=== PATIENT | male | born 1955 | race Caucasian/White ===

== ENCOUNTER 2016-10-19 16:06 | Observation (INO) | payer BC, OTHER ==
[~2016-10-19] VITALS: Ht 185.4 cm; Wt 116.1 kg
[~2016-10-19 16:06] MED LIST: ASP325TEC PO; ASPI-892; ATEN100T88 PO; DCS100C PO; HYDR-3062 PO; METFORMIN PO; MTF500T PO; MULT-608 PO; OMG1KC; OXYC-12 PO; OXYC-197 PO; POTASSIUM; ROSU20TA PO; SULF1TAB35 PO; [UNRECOGNIZED DRUG - REMARK]
[2016-10-19] MEDS ORDERED: POTA10TA10 (16:25)
[2016-10-19] MEDS ORDERED: FURO40TA4 (16:25)
--- NOTE | 2016-10-19 16:30 | Diagnostic Imaging Report ---
INDICATION: Left hand weakness. Noncontrast brain CT is performed. There are no extra-axial fluid collections. No intracranial hemorrhage. No intracranial mass or mass effect. No midline shift. The ventricles are normal in size and position. There are no focal parenchymal abnormalities in the brain. Calvarial windows are unremarkable. IMPRESSION: Negative noncontrast brain CT. Dictated by: Dictated on workstation # [id number]
[2016-10-19 16:47] LABS: BASOPHILS % (AUTO) 0 % (0-10); EOSINOPHILS # (AUTO) 0.2 10^3/uL (0.0-0.3); EOSINOPHILS % (AUTO) 3 % (0-10); LYMPHOCYTES # (AUTO) 1.9 X 10^3 (1.0-4.0); LYMPHOCYTES % (AUTO) 27 % (12-44); MEAN CORPUSCULAR HEMOGLOBIN 31 PG (25-34); MEAN CORPUSCULAR HGB CONC 35 G/DL (32-36); MEAN CORPUSCULAR VOLUME 90 FL (80-99); MEAN PLATELET VOLUME 9.2 FL (7.4-10.4); MONOCYTES # (AUTO) 0.5 X 10^3 (0.0-1.0); MONOCYTES % (AUTO) 7 % (0-12); NEUTROPHILS # (AUTO) 4.5 X 10^3 (1.8-7.8); NEUTROPHILS % (AUTO) 63 % (42-75); PLATELET COUNT 154 10^3/uL (130-400); RED BLOOD COUNT 5.65 10^6/uL (4.35-5.85); RED CELL DISTRIBUTION WIDTH 13.9 % (10.0-14.5); WHITE BLOOD COUNT 7.2 10^3/uL (4.3-11.0)
--- NOTE | 2016-10-19 16:50 | ED Neurological Problem ---
General Chief Complaint: Neuro-Stroke Like Symptoms Stated Complaint: L HAND NUMBNESS Nursing Triage Note: ARRIVED VIA POV FROM DR HILL OFFICE. STATES AT 1445 HE LOST COORDINATION WITH HIS LEFT ARM/HAND THAT HAS SINCE RESOLVED. Nursing Sepsis Screen: No Definite Risk Source: patient Exam Limitations: no limitations History of Present Illness Time seen by provider: 16:12 Initial Comments Here with report of left arm weakness and loss of coordination that started about 1445 today. He noticed it while working on a car with his son. He was unable to pick pulling machine tender a flashlight or move his hand successfully. He then drove himself to his doctor's office who then referred him here for evaluation. Patient was doing a little better at that time and drove to the ER. On arrival , patient is without any abnormality and states everything is pretty much resolved. Denies weakness or numbness. Denies coordination issues or slurred speech. Timing/Duration: 1-3 hours Severity: moderate Associated Symptoms: No confusion, No fever/chills, No loss of consciousness, No muscle spasms, No nausea/vomiting, No paresthesia, weakness Allergies and Home Medications Allergies Coded Allergies: Penicillins (Unverified Allergy, Mild, RASH, 08/17/08) Home Medications Aspirin 325 Mg Tabec, 325 MG PO DAILY, (Reported) Atenolol 100 Mg Tablet, 25 MG PO DAILY, Ref 0 (Reported) Furosemide 40 Mg Tablet, #30 (Reported) Metformin Hcl 500 Mg Tablet, 1,000 MG PO BID, (Reported) DO NOT RESTART TILL 10/04/12 Potassium Chloride 10 Meq Tablet.er, #30 (Reported) [?Diuretic] , DAILY, (Reported) [Potassium] , ?MEQ DAILY, (Reported) Constitutional: see HPI, No chills, No fever Eyes: No Symptoms Reported Ears, Nose, Mouth, Throat: no symptoms reported Respiratory: no symptoms reported Cardiovascular: no symptoms reported, No chest pain, No edema Gastrointestinal: no symptoms reported, No abdominal pain, No nausea, No vomiting Genitourinary: no symptoms reported, No incontinence, No pain Musculoskeletal: see HPI Skin: no symptoms reported Psychiatric/Neurological: See HPI, Denies Cognitive Dysfunction, Denies Tonic Clonic Seizures, Weakness Endocrine: No Symptoms Reported All Other Systems Reviewed Negative Unless Noted: Yes Past Wdcyigb-Eqzyvs-Cqzoht Hx Patient Social History Alcohol Use: Rarely Uses Recreational Drug Use: No Smoking Status: Current Everyday Smoker Recent Foreign Travel: No Contact w/Someone Who Travel: No Recent Infectious Disease Expo: No Immunizations Up To Date Tetanus Booster (TDap): Unknown PED Vaccines UTD: No Surgeries HX Surgeries: Yes (BI PASS, ANKLE PINNED) Surgeries: CABG, Orthopedic, Tonsillectomy Respiratory Hx Respiratory Disorders: Yes Respiratory Disorders: Sleep Apnea Cardiovascular Hx Cardiac Disorders: Yes (STENTS) Cardiac Disorders: Heart Attack, Hypertension Neurological Hx Neurological Disorders: No Reproductive System Hx Reproductive Disorders: No Genitourinary Hx Genitourinary Disorders: Yes Genitourinary Disorders: Kidney Stones Gastrointestinal Hx Gastrointestinal Disorders: No Musculoskeletal Hx Musculoskeletal Disorders: Yes Musculoskeletal Disorders: Fractures Endocrine Hx Endocrine Disorders: Yes Endocrine Disorders: Diabetes, Non-Insulin dep HEENT HX ENT Disorders: No Cancer Hx Cancer: No Psychosocial Hx Psychiatric Problems: No Integumentary HX Skin/Integumentary Disorder: No Reviewed Nursing Assessment Reviewed/Agree w Nursing PMH: Yes Family Medical History Significant Family History: No Pertinent Family Hx Physical Exam Vital Signs Vital Sign - Last 12Hours 10/19/16 16:12 Temp 98.0 Pulse 67 Resp 18 B/P (MAP) 185/96 Pulse Ox 98 Capillary Refill : Less Than 3 Seconds General Appearance: WD/WN, no apparent distress HEENT: PERRL/EOMI, pharynx normal Neck: non-tender Respiratory: chest non-tender, lungs clear Cardiovascular: regular rate, rhythm, no murmur Gastrointestinal: non tender, soft Back: normal inspection, no CVA tenderness, no vertebral tenderness Extremities: non-tender, normal inspection Neurologic/Psychiatric: alert, oriented x 3 Crainal Nerves: normal hearing, normal speech, PERRL Coordination/Gait: normal finger to nose, normal gait Motor/Sensory: no motor deficit, no sensory deficit, no pronator drift Skin: normal color, warm/dry Stroke Onset of Symptoms Date of Onset of Symptoms: Oct 19, 2016 NIH Stroke Scale Assessment Level of Consciousness: 0=Alert Level of Consciousness-Questio: 0=Answers both month/age LOC Commands: 0=Performs both tasks Gaze: 0=Normal Visual [place]: 0=No visual loss Facial Movement (Facial Paresi: 0=Normal symmetrical mnt Motor Function-Arms Right: 0=No drift Motor Function-Arms Left: 0=No drift Motor Function-Legs Right: 0=No drift Motor Function-Legs Left: 0=No drift Limb Ataxia: 0=Absent Sensory: 0=Normal:no loss Best Language: 0=No aphasia Dysarthria: 0=Normal Extinction & Inattention: 0=No abnormality Stroke Thrombolytic Exclusion Age 18 or Over: Yes Intracranial Neoplasm/Aneurysm: No Recent CPR: No Diabetic Hemorrhagic Retinopat: No Recent Obstetric Delivery: No Significant Hepatic Dysfunctio: No Improving Symptoms: No Laceration Repair : Suture Size: 4-0 Progress/Results/Core Measures Results/Orders Lab Results Laboratory Tests Test 10/19/16 16:17 10/19/16 16:38 10/19/16 17:17 Range/Units Glucometer 126 H 70-110 MG/DL White Blood Count 7.2 4.3-11.0 10^3/uL Red Blood Count 5.65 4.35-5.85 10^6/uL Hemoglobin 17.7 13.3-17.7 G/DL Hematocrit 51 40-54 % Mean Corpuscular Volume 90 80-99 FL Mean Corpuscular Hemoglobin 31 25-34 PG Mean Corpuscular Hemoglobin Concent 35 32-36 G/DL Red Cell Distribution Width 13.9 10.0-14.5 % Platelet Count 154 130-400 10^3/uL Mean Platelet Volume 9.2 7.4-10.4 FL Neutrophils (%) (Auto) 63 42-75 % Lymphocytes (%) (Auto) 27 12-44 % Monocytes (%) (Auto) 7 0-12 % Eosinophils (%) (Auto) 3 0-10 % Basophils (%) (Auto) 0 0-10 % Neutrophils # (Auto) 4.5 1.8-7.8 X 10^3 Lymphocytes # (Auto) 1.9 1.0-4.0 X 10^3 Monocytes # (Auto) 0.5 0.0-1.0 X 10^3 Eosinophils # (Auto) 0.2 0.0-0.3 10^3/uL Basophils # (Auto) 0.0 0.0-0.1 10^3/uL Prothrombin Time 13.4 12.2-14.7 SEC INR Comment 1.1 0.8-1.4 Activated Partial Thromboplast Time 31 24-35 SEC D-Dimer 0.27 0.00-0.49 UG/ML Sodium Level 140 135-145 MMOL/L Potassium Level 3.7 3.6-5.0 MMOL/L Chloride Level 105 98-107 MMOL/L Carbon Dioxide Level 24 21-32 MMOL/L Anion Gap 11 5-14 MMOL/L Blood Urea Nitrogen 17 7-18 MG/DL Creatinine 0.86 0.60-1.30 MG/DL Estimat Glomerular Filtration Rate > 60 BUN/Creatinine Ratio 20 0-20 Glucose Level 117 H 70-105 MG/DL Calcium Level 9.5 8.5-10.1 MG/DL Total Bilirubin 0.9 0.1-1.0 MG/DL Aspartate Amino Transf (AST/SGOT) 14 5-34 U/L Alanine Aminotransferase (ALT/SGPT) 17 0-55 U/L Alkaline Phosphatase 109 40-136 U/L Troponin I < 0.30 <0.30 NG/ML Total Protein 7.6 6.4-8.2 GM/DL Albumin 4.6 H 3.2-4.5 GM/DL Urine Color YELLOW Urine Clarity SLIGHTLY CLOUDY Urine pH 5 5-9 Urine Specific [place] 1.020 1.016-1.022 Urine Protein NEGATIVE NEGATIVE Urine Glucose (UA) 4+ H NEGATIVE Urine Ketones NEGATIVE NEGATIVE Urine Nitrite NEGATIVE NEGATIVE Urine Bilirubin NEGATIVE NEGATIVE Urine Urobilinogen NORMAL NORMAL MG/DL Urine Leukocyte Esterase 1+ H NEGATIVE Urine RBC (Auto) 2+ H NEGATIVE Urine RBC NONE /HPF Urine WBC RARE /HPF Urine Squamous Epithelial Cells 2-5 /HPF Urine Crystals NONE /LPF Urine Bacteria NEGATIVE /HPF Urine Casts NONE /LPF Urine Mucus NEGATIVE /LPF Urine Culture Indicated NO My Orders Orders - GAIL CONTI MD Cbc With Automated Diff (10/19/16 16:17) Protime With Inr (10/19/16 16:17) Partial Thromboplastin Time (10/19/16 16:17) Comprehensive Metabolic Panel (10/19/16 16:17) Fibrin Degradation Products (10/19/16 16:17) Troponin I (10/19/16 16:17) Ua Culture If Indicated (10/19/16 16:17) Chest 1 View, Ap/Pa Only (10/19/16 16:17) Ekg Tracing (10/19/16 16:17) Nothing By Mouth (10/19/16 Dinner) Accucheck Stat ONCE (10/19/16 16:17) Saline Lock/Iv-Start (10/19/16 16:17) Vital Signs-Stroke Q1H (10/19/16 16:17) Ct Head Wo-R/O Stroke (10/19/16 16:17) O2 (10/19/16 16:17) Intake & Output 06,14,22 (10/19/16 16:17) Monitor-Rhythm Ecg Trace Only (10/19/16 16:17) Dysphagia Screening Tool (10/19/16 16:17) Vital Signs/I&O Vital Sign - Last 12Hours 10/19/16 16:12 Temp 98.0 Pulse 67 Resp 18 B/P (MAP) 185/96 Pulse Ox 98 Blood Pressure Mean: 125 Point of Care Testing Finger Stick Blood Glucose: 126 Progress Note : Progress Note Seen and evaluated. Stroke team activation initiated on patient arrival. Rapid CT completed. IV, labs, EKG and chest x-ray ordered. Stroke scale is 0. No acute findings currently on physical exam. Monitor patient. 1724: Discussed case with Dr. Whitehead. He accepts patient for admission, observation status. Patient remains without signs and symptoms and overall feels much better. Admit, observation status area patient agrees with plan. MRI and carotid ultrasound in the morning. ECG Initial ECG Impression Date: Oct 19, 2016 Initial ECG Impression Time: 16:27 Initial ECG Rate: 64 Initial ECG Rhythm: Normal Sinus Comment Sinus rhythm with normal axis. No evidence of ST elevation [place]. Unchanged from previous. Interpreted by me. Diagnostic Imaging Diagonstic Imaging: CT Plain Films/CT/US/NM/MRI: head Comments VIA [facility]. [place], [place] NAME: KARON BERMUDEZ [facility] REC#: [id number] PT STATUS: REG ER : 1955 PHYSICIAN: GAIL CONTI MD ADMIT DATE: 10/19/16/ER Draft Date of Exam:10/19/16 CT HEAD WO-R/O STROKE INDICATION: Left hand weakness. Noncontrast brain CT is performed. There are no extra-axial fluid collections. No intracranial hemorrhage. No intracranial mass or mass effect. No midline shift. The ventricles are normal in size and position. There are no focal parenchymal abnormalities in the brain. Calvarial windows are unremarkable. IMPRESSION: Negative noncontrast brain CT. Dictated on workstation # [id number] Dict: 10/19/16 1626 Trans: 10/19/16 1630 [id number] Interpreted by: CLIVE GREGG MD Electronically signed by: Reviewed: Reviewed by Me Diagonstic Imaging: Xray Plain Films/CT/US/NM/MRI: chest Comments VIA [facility]. [place], [place] NAME: KARON BERMUDEZ [facility] REC#: [id number] PT STATUS: REG ER : 1955 PHYSICIAN: GAIL CONTI MD ADMIT DATE: 10/19/16/ER Draft Date of Exam:10/19/16 CHEST 1 VIEW, AP/PA ONLY EXAMINATION: Portable upright radiograph of the chest. INDICATION: Left-sided weakness. FINDINGS: The lungs are clear. The heart size is borderline enlarged. No effusion or pneumothorax. The mediastinum and efren appear unremarkable. Sternotomy wires are seen. IMPRESSION: No acute process. Dictated on workstation # [id number] Dict: 10/19/16 1647 Trans: 10/19/16 1649 [id number] Interpreted by: BRAVO HERNÁNDEZ MD Electronically signed by: Reviewed: Reviewed by Me Departure Communication Time/Spoke to Admitting Phy: 17:24 Impression Impression: Primary Impression: Transient cerebral ischemia Qualified Codes: G45.9 - Transient cerebral ischemic attack, unspecified Disposition: ADMITTED INPATIENT Condition: Stable Decision to Admit Reason: Admit from ER (General) Decision to Admit/Date: Oct 19, 2016 Time/Decision to Admit Time: 17:24 Departure-Patient Inst. Referrals: MAICOL WHITEHEAD DO (PCP/Family) Primary Care Physician GAIL CONTI MD Oct 19, 2016 16:50
[2016-10-19 17:00] LABS: INR 1.1 (0.8-1.4); PROTHROMBIN TIME PATIENT 13.4 SEC (12.2-14.7)
[2016-10-19 17:14] LABS: ALANINE AMINOTRANSFERASE 17 U/L (0-55); ALBUMIN 4.6 GM/DL (3.2-4.5); ANION GAP 11 MMOL/L (5-14); ASPARTATE AMINO TRANSFERASE 14 U/L (5-34); BILIRUBIN,TOTAL 0.9 MG/DL (0.1-1.0); BLOOD UREA NITROGEN 17 MG/DL (7-18); BUN/CREATININE RATIO 20 (0-20); CALCIUM 9.5 MG/DL (8.5-10.1); CARBON DIOXIDE 24 MMOL/L (21-32); CHLORIDE 105 MMOL/L (98-107); CREATININE SERUM 0.86 MG/DL (0.60-1.30); GFR ESTIMATED > 60; GLUCOSE 117 MG/DL (70-105); HEMOLYSIS 22 (-100-29); ICTERUS 0.9 (-100-1.9); LIPEMIA 9 (-100-49); POTASSIUM 3.7 MMOL/L (3.6-5.0); SODIUM 140 MMOL/L (135-145); TOTAL PROTEIN 7.6 GM/DL (6.4-8.2)
[2016-10-19 17:19] LABS: TROPONIN I < 0.30 NG/ML (<0.30)
[2016-10-19 17:27] LABS: BILIRUBIN,URINE NEGATIVE (NEGATIVE); KETONES,URINE NEGATIVE (NEGATIVE); LEUKOCYTE ESTERASE ,URINE 1+ (NEGATIVE); NITRITE,URINE NEGATIVE (NEGATIVE); PH,URINE 5 (5-9); PROTEIN,URINE NEGATIVE (NEGATIVE); UROBILINOGEN,URINE NORMAL (NORMAL)
[2016-10-19 17:35] LABS: WBC,URINE RARE /HPF
[2016-10-19 18:20] VITALS: BP 140/85
[2016-10-19] MEDS ORDERED: DAPA10TA PO (18:33)
[2016-10-19] MEDS ORDERED: ATEN25TA PO (18:35)
[2016-10-19] MEDS ORDERED: POTA10TA10 PO (18:35)
[2016-10-19] MEDS ORDERED: FURO40TA4 PO (18:35)
[2016-10-19] MEDS ORDERED: METF1000 PO (18:35)
[2016-10-19] MEDS ORDERED: HYDR-3812 PO (18:35)
[2016-10-19 19:00] VITALS: BP 130/76
[2016-10-19] MEDS ORDERED: CATHETER FLUSH 10 ML SYR IV PRN (19:00)
[2016-10-19] MEDS ORDERED: NS IV 1000 ML 1,000 ML IV SCH (19:00)
--- NOTE | 2016-10-19 19:55 | Diagnostic Imaging Report ---
PROCEDURE: US Carotid Duplex Bilateral. TECHNIQUE: Multiple real-time grayscale images were obtained over the carotid arteries in various projections bilaterally. Additional duplex Doppler and color Doppler images were also obtained. INDICATION: TIA COMPARISON: There are no prior studies available for comparison. FINDINGS: There is mild hard and soft plaque formation in both carotid systems. The flow velocities failed to show any sign of a hemodynamically significant stenosis of the common or internal carotid arteries. The flow velocities are as follows: Right mid CCA right: 71.4, left 73.3. Proximal ICA right 53.4, left at 55.3. Mid ICA right 91.9, left 83.2. Distal ICA right 95.1, left 81.4. IC/CC right 1.3, left 1.1. Both vertebral arteries were identified and there was antegrade flow bilaterally. IMPRESSION: There is mild atherosclerotic disease involving both carotid systems. There is no evidence for a hemodynamically significant stenosis of common or internal carotid arteries. Dictated by: Dictated on workstation # [id number]
[2016-10-19] MEDS: inSUlin (REGULAR) HUMAN 1 UNIT/0.01 ML (CHARGE PER UNIT) SC SCH (21:28)
[2016-10-19 23:15] VITALS: BP 112/71
[2016-10-20 04:00] VITALS: BP 108/70
[2016-10-20 04:14] LABS: BASOPHILS % (AUTO) 0 % (0-10); EOSINOPHILS # (AUTO) 0.3 10^3/uL (0.0-0.3); EOSINOPHILS % (AUTO) 4 % (0-10); LYMPHOCYTES # (AUTO) 2.3 X 10^3 (1.0-4.0); LYMPHOCYTES % (AUTO) 33 % (12-44); MEAN CORPUSCULAR HEMOGLOBIN 31 PG (25-34); MEAN CORPUSCULAR HGB CONC 34 G/DL (32-36); MEAN CORPUSCULAR VOLUME 91 FL (80-99); MEAN PLATELET VOLUME 9.2 FL (7.4-10.4); MONOCYTES # (AUTO) 0.6 X 10^3 (0.0-1.0); MONOCYTES % (AUTO) 9 % (0-12); NEUTROPHILS # (AUTO) 3.8 X 10^3 (1.8-7.8); NEUTROPHILS % (AUTO) 55 % (42-75); PLATELET COUNT 140 10^3/uL (130-400); RED BLOOD COUNT 5.17 10^6/uL (4.35-5.85); RED CELL DISTRIBUTION WIDTH 13.9 % (10.0-14.5); WHITE BLOOD COUNT 6.9 10^3/uL (4.3-11.0)
[2016-10-20 04:33] LABS: ALANINE AMINOTRANSFERASE 15 U/L (0-55); ALBUMIN 3.7 GM/DL (3.2-4.5); ANION GAP 13 MMOL/L (5-14); ASPARTATE AMINO TRANSFERASE 16 U/L (5-34); BILIRUBIN,TOTAL 0.8 MG/DL (0.1-1.0); BLOOD UREA NITROGEN 19 MG/DL (7-18); BUN/CREATININE RATIO 24 (0-20); CALCIUM 9.1 MG/DL (8.5-10.1); CARBON DIOXIDE 22 MMOL/L (21-32); CHLORIDE 104 MMOL/L (98-107); CREATININE SERUM 0.78 MG/DL (0.60-1.30); GFR ESTIMATED > 60; GLUCOSE 119 MG/DL (70-105); HEMOLYSIS 23 (-100-29); ICTERUS 0.8 (-100-1.9); LIPEMIA 17 (-100-49); POTASSIUM 3.5 MMOL/L (3.6-5.0); SODIUM 139 MMOL/L (135-145); TOTAL PROTEIN 6.5 GM/DL (6.4-8.2)
[2016-10-20] MEDS: inSUlin (REGULAR) HUMAN 1 UNIT/0.01 ML (CHARGE PER UNIT) SC SCH ×2 (04:41→13:20)
[2016-10-20 08:45] VITALS: BP 122/74
--- NOTE | 2016-10-20 08:48 | Diagnostic Imaging Report ---
PROCEDURE: MR imaging of the brain without contrast. TECHNIQUE: Multiplanar, multisequence MR imaging of the brain was performed without contrast. INDICATION: Left hand and arm weakness. Numbness. FINDINGS: There is no diffusion restriction to suggest an acute infarct or other diffusion abnormality. There is minimal periventricular and deep white matter T2 hyperintense lesions likely secondary to mild chronic microvascular ischemic changes. There is no hydrocephalus. No extra-axial fluid collection is seen. The central vascular flow-voids appear grossly unremarkable. The internal auditory canals and inner ear structures appear symmetric. There is fluid intensity seen in the mastoid air cells bilaterally. Correlate for possible associated mastoiditis. There is also suggestion of a mucous retention cyst in the left maxillary sinus and mucosal thickening in the sinus. The pituitary gland is normal in size. No hypothalamic or pineal region mass. IMPRESSION: 1. No acute infarct. 2. Sinus disease. Dictated by: Dictated on workstation # [id number]
--- NOTE | 2016-10-20 08:54 | History & Physicial ---
History of Present Illness History of Present Illness Reason for visit/HPI patient came to the office yesterday. Patient unable to move his left hand and arm. This started 45 minutes ago. Patient in office was able to move his left hand for weaker. Patient stated he was unable to pickup driver a half pound flashlight. Patient immediately sent out to the emergency room. Patient has history of open heart surgery and diabetes. Patient admitted Date of Admission Oct 19, 2016 at 17:40 Time Seen by Provider: 08:45 I consulted on this patient on 10/20/16 08:50 Attending Physician Austin Whitehead DO Admitting Physician Austin Whitehead DO Consult Allergies and Home Medications Allergies Coded Allergies: Penicillins (Unverified Allergy, Mild, RASH, 08/17/08) Home Medications Aspirin 325 Mg Tabec, 325 MG PO DAILY, (Reported) Atenolol 25 Mg Tablet, 25 MG PO DAILY, (Reported) Dapagliflozin Propanediol 10 Mg Tablet, 10 MG PO DAILY, (Reported) Furosemide 40 Mg Tablet, 40 MG PO DAILY, (Reported) Hydrocodone/Acetaminophen 1 Each Tablet, 1 EACH PO BID PRN for PAIN, (Reported) Metformin HCl 1,000 Mg Tablet, 1,000 MG PO BID, (Reported) Potassium Chloride 10 Meq Tablet.er, 10 MEQ PO DAILY, (Reported) Past Ywdnvwl-Howfwg-Hndywm Hx Patient Social History Marrital Status: Employed/Student: employed Alcohol Use: Rarely Uses Recreational Drug Use: No Smoking Status: Light Tobacco Smoker Type Used: Cigars Physical Abuse Screen: No Sexual Abuse: No Recent Foreign Travel: No Contact w/other who traveled: No Recent Hopitalizations: No Recent Infectious Disease Expo: No Immunizations Up To Date Tetanus Booster (TDap): Unknown Seasonal Allergies Seasonal Allergies: No Surgeries HX Surgeries: Yes (BI PASS, ANKLE PINNED) Surgeries: CABG, Orthopedic, Tonsillectomy Respiratory Hx Respiratory Disorders: Yes Cardiovascular Hx Cardiovascular Disorders: Yes (STENTS) Cardiac Disorders: Heart Attack, Hypertension Neurological Hx Neurological Disorders: No Reproductive System Hx Reproductive Disorders: No Genitourinary Hx Genitourinary Disorders: Yes Genitourinary Disorders: Kidney Stones Gastrointestinal Hx Gastrointestinal Disorders: No Musculoskeletal Hx Musculoskeletal Disorders: Yes Musculoskeletal Disorders: Fractures Endocrine Hx Endocrine Disorders: Yes Endocrine Disorders: Diabetes, Non-Insulin dep HEENT HX ENT Disorders: No Cancer Hx Cancer: No Psychosocial Hx Psychiatric Problems: No Integumentary HX Skin/Integumentary Disorder: No Blood Transfusions Adverse Reaction to a Blood Tr: No Reviewed Nursing Assessment Reviewed/Agree w Nursing PMH: Yes Family Medical History Significant Family History: No Pertinent Family Hx Constitutional: no symptoms reported, other (weakness left hand and arm) EENTM: no symptoms reported Respiratory: no symptoms reported Cardiovascular: no symptoms reported Gastrointestinal: no symptoms reported Genitourinary: no symptoms reported Physical Exam Vital Signs Vital Sign - Last 12Hours 10/19/16 10/19/16 10/19/16 16:12 18:20 21:04 Temp 98.0 Pulse 67 Resp 18 B/P (MAP) 185/96 Pulse Ox 98 O2 Delivery Room Air O2 Flow Rate 4.00 Capillary Refill : Less Than 3 Seconds General Appearance: No Apparent Distress, WD/WN Eyes: Bilateral Eye Normal Inspection HEENT: Normal ENT Inspection Neck: Full Range of Motion, Normal Inspection Respiratory: Chest Non Tender, Normal Breath Sounds, No Accessory Muscle Use, No Respiratory Distress Cardiovascular: Regular Rate, Rhythm, No Murmur Gastrointestinal: Non Tender, Soft Assessment/Plan Assessment and Plan TIA versus CVA. Diabetes. Coronary artery disease. Hypertension. Problems: Clinical Quality Measures DVT/VTE Risk/Contraindication: Risk Factor Score Per Nursin RFS Level Per Nursing on Admit: 4+=Very High Stroke: Date of last known well: Oct 19, 2016 A[place]IN WHITEHEAD DO Oct 20, 2016 08:54
[2016-10-20] MEDS ORDERED: ENOXAPARIN 40 MG/0.4 ML (LOVENOX) SYR SC SCH (09:00)
[2016-10-20] MEDS ORDERED: FUROSEMIDE 40 MG (LASIX) TAB PO SCH (09:00)
[2016-10-20] MEDS ORDERED: NON-FORMULARY MEDICATION 1 EA EA (Dapagliflozin Propanediol (Farxiga) 10 MG) PO SCH (09:00)
[2016-10-20] MEDS ORDERED: ASPIRIN E.C. 325 MG (ECOTRIN) TABLET PO SCH ×2 (09:00)
[2016-10-20] MEDS ORDERED: KCL 10 MEQ TAB (MICRO K) PO SCH (09:00)
[2016-10-20] MEDS ORDERED: ATENOLOL 25 MG (TENORMIN) TAB PO SCH (09:00)
--- NOTE | 2016-10-20 10:10 | Consultation-Cardiology ---
HPI-Cardiology Cardiology Consultation: Date of Consultation 10/20/16 Date of Admission 10-19-16 Attending Physician Maicol Whitehead DO Admitting Physician Maicol Whitehead DO Consulting Physician ABDIEL LORD MD [facility] ADRYAN DUP HPI: Chief Complaint: Suspected TIA Mr. Smith is a 61 year old male admitted to ICU 3 from the ED. He reports he was at work yesterday and had a sudden onset of left arm weakness. He states starting at approx the left forearm he began to have numbness which radiated down to his fingers. 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 He states it lasted for approx 15 mintues. He reports no previous episodes. He reports symptoms have resolved. He denies any palpitations, syncope or near syncope. No LE edema. No c/o dyspnea. The episode consisted of L arm numbness, paresthesia, and some weakness. It resolved in about an hour. He thinks he may have been standing or sitting with his L elbow pressing against a hard surface Review of Systems-Cardiology Review of Systems Time Seen by Provider: 10:10 Constitutional: As described under HPI Eyes: No blurred vision, No drainage, No pain, No vision change Ears/Nose/Throat: No ear discharge, No ear pain, No nasal drainage, No ulcerations Respiratory: As described under HPI Cardiovascular: As described under HPI Gastrointestinal: No constipation, No diarrhea, No nausea, No vomiting, No stool coloration changes Genitourinary: No dysuria, No discharge, No frequency, No hematuria, No urgency Skin: No rash, No skin related problems, No ulcerations Psychiatric/Neurological: As described under HPI, No anxiety, No depression, No focal weakness, No seizure, No syncope Hematologic: No bleeding abnormalities All Other Systems Reviewed Negative Unless Noted: Yes [id number]-[id number]-Ndfyux Hx Patient Social History Marrital Status: Employed/Student: employed Alcohol Use: Rarely Uses Recreational Drug Use: No Smoking Status: Light Tobacco Smoker Type Used: Cigars Recent Foreign Travel: No Recent Infectious Disease Expo: No Physical Abuse Screen: No Sexual Abuse: No Immunizations Up To Date Tetanus Booster (TDap): Unknown Past Medical History PMH As described under Assessment. Family Medical History Family Medical History: Father had DM, HTN, CVA and CAD. His mother had HTN. Allergies and Home Medications Allergies Coded Allergies: Penicillins (Unverified Allergy, Mild, RASH, 08/17/08) Home Medications Aspirin 325 Mg Tabec, 325 MG PO DAILY, (Reported) Atenolol 25 Mg Tablet, 25 MG PO DAILY, (Reported) Dapagliflozin Propanediol 10 Mg Tablet, 10 MG PO DAILY, (Reported) Furosemide 40 Mg Tablet, 40 MG PO DAILY, (Reported) Hydrocodone/Acetaminophen 1 Each Tablet, 1 TAB PO BID PRN for PAIN, (Reported) Metformin HCl 500 Mg Tablet, 1,000 MG PO BID, (Reported) TAKES 2 (500 MG) TABLETS [place]-3/Dha/Epa/Fish Oil 1 Each Capsule, 3,000 MG PO BID, (Reported) TAKES 3 (1,000 MG) CAPSULES Potassium Chloride 10 Meq Tablet.er, 10 MEQ PO DAILY, (Reported) Rosuvastatin Calcium 20 Mg Tablet, 20 MG PO DAILY, (Reported) Physical Exam-Cardiology Physical Exam Vital Signs/I&O Vital Sign - Last 12Hours 10/20/16 10/20/16 10/20/16 10/20/16 07:00 08:45 08:45 09:55 Temp 97.7 Pulse 51 58 Resp 14 B/P (MAP) 122/74 Pulse Ox 98 99 98 O2 Delivery Room Air Room Air Room Air 10/20/16 10/20/16 10/20/16 10/20/16 12:00 12:00 13:00 15:15 Temp 98.0 Pulse 60 59 Resp 16 B/P (MAP) 118/75 Pulse Ox 99 98 O2 Delivery Room Air Room Air Nasal Cannula O2 Flow Rate 4.00 10/20/16 10/20/16 16:10 16:10 B/P (MAP) Pulse Ox 99 O2 Delivery Room Air Intake and Output 10/20/16 00:00 Intake Total 250 ml Output Total 200 ml Balance 50 ml Capillary Refill : Less Than 3 Seconds Constitutional: appears stated age, No apparent distress, well-developed, well- nourished HEENT: PERRL, No discharge, hearing is well preserved, oral hygience is good, No ulceration, No xanthelasmas are seen Neck: No carotid bruit, carotid pulses are 2 + bilaterally Respiratory: No accessory muscle use, No respiratory distress, chest expansion is symmetric, chest is bilaterally symmetric, lungs clear to auscultation Cardiovascular: regular rate-rhythm, No JVD, S1 and S2 Gastrointestinal: No tender, soft, audible bowel sounds, No spleenomegaly Rectal: deferred Extremities: No clubbing, No cyanosis, No significant edema Neurologic/Psychiatric: alert, oriented x 3, power is 5/5 both on sides Skin: No rash, No ulcerations Data Review Labs Laboratory Tests 10/19/16 21:25: Glucometer 115H 10/20/16 03:40: White Blood Count 6.9, Red Blood Count 5.17, Hemoglobin 16.0, Hematocrit 47, Mean Corpuscular Volume 91, Mean Corpuscular Hemoglobin 31, Mean Corpuscular Hemoglobin Concent 34, Red Cell Distribution Width 13.9, Platelet Count 140, Mean Platelet Volume 9.2, Neutrophils (%) (Auto) 55, Lymphocytes (%) (Auto) 33, Monocytes (%) (Auto) 9, Eosinophils (%) (Auto) 4, Basophils (%) (Auto) 0, Neutrophils # (Auto) 3.8, Lymphocytes # (Auto) 2.3, Monocytes # (Auto) 0.6, Eosinophils # (Auto) 0.3, Basophils # (Auto) 0.0, Sodium Level 139, Potassium Level 3.5L, Chloride Level 104, Carbon Dioxide Level 22, Anion Gap 13, Blood Urea Nitrogen 19H, Creatinine 0.78, Estimat Glomerular Filtration Rate > 60, BUN /Creatinine Ratio 24H, Glucose Level 119H, Calcium Level 9.1, Total Bilirubin 0.8, Aspartate Amino Transf (AST/SGOT) 16, Alanine Aminotransferase (ALT/SGPT) 15, Alkaline Phosphatase 95, Total Protein 6.5, Albumin 3.7, Triglycerides Level 291H, Cholesterol Level 167, LDL Cholesterol Direct 106, VLDL Cholesterol 58H, HDL Cholesterol 20L 10/20/16 11:29: Glucometer 185H Radiology NAME: KARON SMITH [facility] REC#: [id number] PT STATUS: REG ER : 1955 PHYSICIAN: GAIL CONTI MD ADMIT DATE: 10/19/16/ER Signed Date of Exam: 10/19/16 CT HEAD WO-R/O STROKE INDICATION: Left hand weakness. Noncontrast brain CT is performed. There are no extra-axial fluid collections. No intracranial hemorrhage. No intracranial mass or mass effect. No midline shift. The ventricles are normal in size and position. There are no focal parenchymal abnormalities in the brain. Calvarial windows are unremarkable. IMPRESSION: Negative noncontrast brain CT. Dictated by: Dictated on workstation # [id number] Dict: 10/19/16 1626 Trans: 10/19/161657 Interpreted by: CLIVE GREGG MD Electronically signed by: CLIVE GREGG MD 10/19/161657 [id number] PT STATUS: REG ER : 1955 PHYSICIAN: GAIL CONTI MD ADMIT DATE: 10/19/16/ER Signed Date of Exam: 10/19/16 CHEST 1 VIEW, AP/PA ONLY EXAMINATION: Portable upright radiograph of the chest. INDICATION: Left-sided weakness. FINDINGS: The lungs are clear. The heart size is borderline enlarged. No effusion or pneumothorax. The mediastinum and efren appear unremarkable. Sternotomy wires are seen. IMPRESSION: No acute process. Dictated by: Dictated on workstation # [id number] Dict: 10/19/16 1647 Trans: 10/19/161658 Interpreted by: BRAVO HERNÁNDEZ MD Electronically signed by: BRAVO HERNÁNDEZ MD 10/19/161658 NAME: KARON SMITH [facility] REC#: [id number] PT STATUS: ADM Joellen : 1955 PHYSICIAN: MAICOL WHITEHEAD DO ADMIT DATE: 10/19/16/ICU Signed Date of Exam: 10/19/16 US CAROTID RICH COMPLETE [id number] PROCEDURE: US Carotid Duplex Bilateral. TECHNIQUE: Multiple real-time grayscale images were obtained over the carotid arteries in various projections bilaterally. Additional duplex Doppler and color Doppler images were also obtained. INDICATION: TIA COMPARISON: There are no prior studies available for comparison. FINDINGS: There is mild hard and soft plaque formation in both carotid systems. The flow velocities failed to show any sign of a hemodynamically significant stenosis of the common or internal carotid arteries. The flow velocities are as follows: Right mid CCA right: 71.4, left 73.3. Proximal ICA right 53.4, left at 55.3. Mid ICA right 91.9, left 83.2. Distal ICA right 95.1, left 81.4. IC/CC right 1.3, left 1.1. Both vertebral arteries were identified and there was antegrade flow bilaterally. IMPRESSION: There is mild atherosclerotic disease involving both carotid systems. There is no evidence for a hemodynamically significant stenosis of common or internal carotid arteries. Dictated by: Dictated on workstation # [id number] Dict: 10/19/161939 Trans: 10/19/162301 Interpreted by: ANDRES BECERRA MD Electronically signed by: ANDRES BECERRA MD 10/19/162301 NAME: KARON SMITH [facility] REC#: [id number] PT STATUS: ADM Joellen : 1955 PHYSICIAN: MAICOL WHITEHEAD DO ADMIT DATE: 10/19/16/ICU Draft Date of Exam:10/20/16 MRI BRAIN W/O CONTRAST PROCEDURE: MR imaging of the brain without contrast. TECHNIQUE: Multiplanar, multisequence MR imaging of the brain was performed without contrast. INDICATION: Left hand and arm weakness. Numbness. FINDINGS: There is no diffusion restriction to suggest an acute infarct or other diffusion abnormality. There is minimal periventricular and deep white matter T2 hyperintense lesions likely secondary to mild chronic microvascular ischemic changes. There is no hydrocephalus. No extra-axial fluid collection is seen. The central vascular flow-voids appear grossly unremarkable. The internal auditory canals and inner ear structures appear symmetric. There is fluid intensity seen in the mastoid air cells bilaterally. Correlate for possible associated mastoiditis. There is also suggestion of a mucous retention cyst in the left maxillary sinus and mucosal thickening in the sinus. The pituitary gland is normal in size. No hypothalamic or pineal region mass. IMPRESSION: 1. Sinus disease. Dictated on workstation # [id number] Dict: 10/20/16 0835 Trans: 10/20/16 0848 [facility] [id number] Interpreted by: BRAVO HERNÁNDEZ MD Electronically signed by: A/P-Cardiology Assessment/Admission Diagnosis Transient L arm weakness w/o evidence of CVA on MRI Mild carotid arterial disease on carotid u/s of 10/20/16 Suspected TIA consisting of left forearm to fingertip numbness and inability to hardware developer lasting approx 10-15 minutes with complete resolution No evidence of CVA per CT of the head or MRI Coronary artery disease with a history of coronary artery bypass surgery. He underwent left internal mammary graft to left anterior descending, saphenous vein graft to right coronary and a sequential vein graft to diagonal, ramus intermedius and obtuse marginal on 02/11/[address] Goyal at [facility]. Previously several years ago, he had drug-eluting coronary stenting of the coronary artery and was noted to have severe stent re-stenosis and other coronary artery disease on cardiac catheterization of January 2011 prior to his coronary artery bypass surgery. Dyslipidemia, currently being treated with Crestor by Dr Whitehead and also being followed by Dr Whitehead Joint and back discomfort. Maturity onset diabetes mellitus, being managed by Dr. Whitehead. Elevated body mass index of 33. Hypertension Sleep apnea being treated with BI-PAP. Chronic left leg swelling, likely related to venous insufficiency, associated with stasis dermatitis. History of urolithiasis. Erectile dysfunction. Minimal carotid arterial disease, hemodynamically insignificant per ultrasonography of 06/22/14. Carotid u/s of 10-20-16: mild atherosclerotic disease involving both carotid systems. There is no evidence for a hemodynamically significant stenosis of common or internal carotid arteries. Fall in August 2012 leading to pelvic fracture and L rotator cuff injury, clinically improved and stable, being followed by his orthopedic surgeon, Dr Man. Discussion and Recomendations Suspected TIA source undetermined. CT and MRI has shown no evidence of CVA. Carotid u/s shows only mild carotid dz. Telemetry thus far has shown no evidence of arrhythmia. Continue tele. If no evidence of arrhythmia seen need to consider out patient monitor or ILR. We have discussed this with him and he is not agreeable thus far. He has sleep apnea and reports he has been compliant with his CPAP tx at home. Continue current medications including ASA. Further recommendations will be based on his hospital course. We would like to thank Dr. Whitehead for this consult. This consult is being scribed by John Ovalle APRN on behalf of Dr. Lord after discussion regarding plan of care. Clinical Quality Measures DVT/VTE Risk/Contraindication: Risk Factor Score Per Nursin RFS Level Per Nursing on Admit: 4+=Very High Stroke: Date of last known well: Oct 19, 2016 Physician Assessment Physician Assessment Lungs: clear Cor: reg A&R: * As documented in our note above that I updated at the time of this writing ( italics) * There is no evidence of CVA on MRI, but symptoms are suggestive of TIA or entrapment neuropathy * I had a detailed discussion with him and with Dr Whitehead * Carotids do exhibit mild disease; accordingly, therapy with clopidogrel appears reasonable * PAF needs to be considered as a source of TIA. We discussed empiric OAC while awaiting further w/u for occult A Fib. He doesn't agree to OAC. Does not agree to ILR but is amenable to 3-week amb cardiac monitoring. States will come to our office in the morning to have that initiated ADRYAN OVALLE Oct 20, 2016 10:10 ABDIEL LORD MD FACP FAC CCDS Oct 20, 2016 18:44
[2016-10-20 10:26] LABS: CHOLESTEROL 167 MG/DL (< 200); DIRECT LDL 106 MG/DL (1-129); LIPEMIA 25 (-100-49); TRIGLYCERIDES 291 MG/DL (<150); VLDL CHOLESTEROL 58 MG/DL (5-40)
[2016-10-20] MEDS ORDERED: METF500T4 PO (10:27)
[2016-10-20] MEDS ORDERED: OMEG-160 PO (10:27)
[2016-10-20] MEDS ORDERED: HYDROcodone/APAP 5 MG/325 MG (LORTAB) TAB PO PRN (11:15)
[2016-10-20 12:00] VITALS: BP 118/75
[2016-10-20] MEDS ORDERED: ROSU20TA28 PO (16:29)
[2016-10-20] MEDS ORDERED: metFORMIN 500 MG (GLUCOPHAGE) TAB PO SCH (17:00)
[2016-10-20] MEDS ORDERED: CLOP75TA28 PO (18:48)
[2016-10-20] MEDS ORDERED: ASPI-999 PO (18:48)
[2016-10-21] MEDS ORDERED: CLOPIDOGREL 75 MG (PLAVIX) TABLET PO SCH (09:00)
--- NOTE | 2016-10-22 07:11 | Clinic Account Progress/Dx ---
Clinic Account Progress/Dx DIAGNOSIS: Time Seen by Provider: 07:00 Diagnosis transferred ischemic attack. Diabetes. Coronary artery disease. Hypertension. Hyperlipidemia. Sleep apnea MAICOL WHITEHEAD DO Oct 22, 2016 07:11
--- OUTSIDE RECORDS SUMMARY | 2016-10-22 12:44 | XMS REPORT | Continuity of Care Document ---
Author Author [facility] Organization [facility] Address Unknown Phone Unavailable Allergies Active Description Code Type Severity Reaction Onset Reported/Identified Relationship to Patient Clinical Status Yes Penicillins [id number] Drug Allergy Mild RASH 08/17/2008 Medications Problems Date Dx Coded Attending Type Code Diagnosis Diagnosed By 02/09/2011 Ot 250.00 02/09/2011 Ot 272.4 02/09/2011 Ot 278.00 02/09/2011 Ot 401.9 02/09/2011 Ot 410.71 02/09/2011 Ot 414.01 02/09/2011 Ot 780.57 02/09/2011 Ot 996.72 02/09/2011 Ot V15.81 02/09/2011 Ot V45.82 02/09/2011 Ot V85.39 05/29/2011 Ot V45.81 05/29/2011 Ot V57.89 10/03/2012 GHASSAN POND, KRAIG Ot 250.00 10/03/2012 GHASSAN POND, KRAIG Ot 272.1 10/03/2012 GHASSAN POND, KRAIG Ot 401.9 10/03/2012 GHSASAN POND, KRAIG Ot 414.00 10/03/2012 GHASSAN POND, KRAIG Ot 780.57 10/03/2012 GHASSAN POND, KRAIG Ot 808.0 10/03/2012 GHASSAN POND, KRAIG Ot E881.0 10/03/2012 GHASSAN POND, KRAIG Ot V15.82 10/03/2012 KRAIG FERRELL MD Ot V45.81 10/02/2014 Ot 272.4 10/02/2014 Ot 414.01 10/02/2014 Ot V58.69 10/02/2014 Ot 451.0 10/02/2014 Ot 414.00 10/02/2014 Ot V45.81 10/02/2014 Ot 401.9 10/02/2014 Ot 414.00 10/02/2014 Ot 780.79 10/02/2014 Ot V45.81 10/02/2014 Ot V58.69 10/02/2014 Ot 397.0 10/02/2014 Ot 414.8 10/02/2014 Ot 424.0 10/02/2014 Ot 272.4 10/02/2014 Ot 401.9 10/02/2014 Ot 414.00 10/02/2014 Ot V58.69 10/02/2014 GELLENDER DOMAICOL Ot 959.2 10/02/2014 GELLENDER DO, MAICOL Mares Ot E000.8 10/02/2014 GELLENDER DO, MAICOL Mares Ot E849.3 10/02/2014 GELLENDER DOMAICOL Ot E888.9 12/27/2014 Ot 451.0 12/27/2014 Ot 414.00 12/27/2014 Ot V45.81 12/27/2014 Ot 401.9 12/27/2014 Ot 414.00 12/27/2014 Ot 780.79 12/27/2014 Ot V45.81 12/27/2014 Ot V58.69 12/27/2014 Ot 397.0 12/27/2014 Ot 414.8 12/27/2014 Ot 424.0 12/27/2014 Ot 272.4 12/27/2014 Ot 401.9 12/27/2014 Ot 414.00 12/27/2014 Ot V58.69 12/27/2014 CASHLENDER , MAICOL Marse Ot 959.2 12/27/2014 GELLENDER DO, MAICOL Mares Ot E000.8 12/27/2014 GELLENDER DO, MAICOL Mares Ot E849.3 12/27/2014 GELLENDER , MAICOL Mares Ot E888.9 12/27/2014 HAZEL GARCIAS APRN Ot 826.1 FX PHALANX, FOOT-OPEN 12/27/2014 HAZEL GARCIAS SCHEDULING CLERK Ot 959.7 LOWER LEG INJURY NOS 12/27/2014 HAZEL GARCIAS SCHEDULING CLERK Ot E000.0 CIVILIAN ACTIVITY DONE FOR INCOME OR PAY 12/27/2014 HAZEL GARCIAS APRN Ot E917.9 STRUCK BY OBJ/PERSON NEC 12/27/2014 HAZEL GARCIAS SCHEDULING CLERK Ot V06.1 [id number], COMBINED [ 08/21/2015 VENTURA BULLOCKMAICOL Ot R07.2 PRECORDIAL PAIN 08/21/2015 GELLENDER DO, MAICOL Mares Ot Z98.89 OTHER SPECIFIED POSTPROCEDURAL STATES 03/17/2016 GELLENDER DO, MAICOL Mares Ot R07.2 PRECORDIAL PAIN 03/17/2016 CASHLENDER DO, MAICOL Mares Ot Z98.89 OTHER SPECIFIED POSTPROCEDURAL STATES 10/19/2016 GELLENDER DO, MAICOL Mares Ot R07.2 PRECORDIAL PAIN 10/19/2016 KENDYDER , MAICOL Mares Ot Z98.89 OTHER SPECIFIED POSTPROCEDURAL STATES Procedures Results Test Result Range Capillary blood glucose measurement by glucometer (mass/volume) - 10/19/16 16: 17 Capillary blood glucose measurement by glucometer (mass/volume) 126 mg/dL 70-110 Complete blood count (CBC) with automated white blood cell (WBC) differential - 10/19/16 16:38 Blood leukocytes automated count (number/volume) 7.2 10*3/ uL 4.3-11.0 Blood erythrocytes automated count (number/volume) 5.65 10*6 /uL 4.35-5.85 Venous blood hemoglobin measurement (mass/volume) 17.7 g/dL 13.3-17.7 Blood hematocrit (volume fraction) 51 % 40-54 Automated erythrocyte mean corpuscular volume 90 [foz_us] 80-99 Automated erythrocyte mean corpuscular hemoglobin (mass per erythrocyte) 31 pg 25-34 Automated erythrocyte mean corpuscular hemoglobin concentration measurement ( mass/volume) 35 g/dL 32-36 Automated erythrocyte distribution width ratio 13.9 % 10.0-14.5 Automated blood platelet count (count/volume) 154 10*3/uL 130-400 Automated blood platelet mean volume measurement 9.2 [foz_us ] 7.4-10.4 Automated blood neutrophils/100 leukocytes 63 % 42-75 Automated blood lymphocytes/100 leukocytes 27 % 12-44 Blood monocytes/100 leukocytes 7 % 0-12 Automated blood eosinophils/100 leukocytes 3 % 0-10 Automated blood basophils/100 leukocytes 0 % 0-10 Blood neutrophils automated count (number/volume) 4.5 10*3 1.8-7.8 Blood lymphocytes automated count (number/volume) 1.9 10*3 1.0-4.0 Blood monocytes automated count (number/volume) 0.5 10*3 0.0-1.0 Automated eosinophil count 0.2 10*3/uL 0.0-0.3 Automated blood basophil count (count/volume) 0.0 10*3/uL 0.0-0.1 PT panel in platelet poor plasma by coagulation assay - 10/19/16 16:38 Prothrombin time (PT) in platelet poor plasma by coagulation assay 13.4 s 12.2-14.7 INR in platelet poor plasma or blood by coagulation assay 1.1 0.8-1.4 Activated partial thromboplastin time (aPTT) in platelet poor plasma bycoagulation assay - 10/19/16 16:38 Activated partial thromboplastin time (aPTT) in platelet poor plasma bycoagulation assay 31 s 24-35 Fibrin D-dimer FEU measurement in platelet poor plasma (mass/volume) - 16:38 Fibrin D-dimer FEU measurement in platelet poor plasma (mass/volume) 0.27 ug/mL 0.00-0.49 Comprehensive metabolic panel - 10/19/16 16:38 Serum or plasma sodium measurement (moles/volume) 140 mmol/ L 135-145 Serum or plasma potassium measurement (moles/volume) 3.7 mmol/L 3.6-5.0 Serum or plasma chloride measurement (moles/volume) 105 mmol /L 98-107 Carbon dioxide 24 mmol/L 21-32 Serum or plasma anion gap determination (moles/volume) 11 mmol/L 5-14 Serum or plasma urea nitrogen measurement (mass/volume) 17 mg/dL 7-18 Serum or plasma creatinine measurement (mass/volume) 0.86 mg /dL 0.60-1.30 Serum or plasma urea nitrogen/creatinine mass ratio 20 0-20 Serum or plasma creatinine measurement with calculation of estimated glomerular filtration rate > NRG Serum or plasma glucose measurement (mass/volume) 117 mg/dL 70-105 Serum or plasma calcium measurement (mass/volume) 9.5 mg/dL 8.5-10.1 Serum or plasma total bilirubin measurement (mass/volume) 0.9 mg/dL 0.1-1.0 Serum or plasma alkaline phosphatase measurement (enzymatic activity/volume) 109 U/L 40-136 Serum or plasma aspartate aminotransferase measurement (enzymatic activity/ volume) 14 U/L 5-34 Serum or plasma alanine aminotransferase measurement (enzymatic activity/volume ) 17 U/L 0-55 Serum or plasma protein measurement (mass/volume) 7.6 g/dL 6.4-8.2 Serum or plasma albumin measurement (mass/volume) 4.6 g/dL 3.2-4.5 Serum or plasma troponin i.cardiac measurement (mass/volume) - 10/19/16 16:38 Serum or plasma troponin i.cardiac measurement (mass/volume) < ng/mL <0.30 Complete urinalysis with reflex to culture - 10/19/16 17:17 Urine color determination YELLOW NRG Urine clarity determination SLIGHTLY CLOUDY NRG Urine pH measurement by test strip 5 5- 9 Specific gravity of urine by test strip 1.020 1.016-1.022 Urine protein assay by test strip, semi-quantitative NEGATIVE NEGATIVE Urine glucose detection by automated test strip 4+ NEGATIVE Erythrocytes detection in urine sediment by light microscopy 2+ NEGATIVE Urine ketones detection by automated test strip NEGATIVE NEGATIVE Urine nitrite detection by test strip NEGATIVE NEGATIVE Urine total bilirubin detection by test strip NEGATIVE NEGATIVE Urine urobilinogen measurement by automated test strip (mass/volume) NORMAL NORMAL Urine leukocyte esterase detection by dipstick 1+ NEGATIVE Automated urine sediment erythrocyte count by microscopy (number/high power field) NONE NRG Automated urine sediment leukocyte count by microscopy (number/high power field ) RARE NRG Bacteria detection in urine sediment by light microscopy NEGATIVE NRG Squamous epithelial cells detection in urine sediment by light microscopy 2-5 NRG Crystals detection in urine sediment by light microscopy NONE NRG Casts detection in urine sediment by light microscopy NONE NRG Mucus detection in urine sediment by light microscopy NEGATIVE NRG Complete urinalysis with reflex to culture NO NRG Capillary blood glucose measurement by glucometer (mass/volume) - 10/19/16 21: 25 Capillary blood glucose measurement by glucometer (mass/volume) 115 mg/dL 70-110 Complete blood count (CBC) with automated white blood cell (WBC) differential - 10/20/16 03:40 Blood leukocytes automated count (number/volume) 6.9 10*3/ uL 4.3-11.0 Blood erythrocytes automated count (number/volume) 5.17 10*6 /uL 4.35-5.85 Venous blood hemoglobin measurement (mass/volume) 16.0 g/dL 13.3-17.7 Blood hematocrit (volume fraction) 47 % 40-54 Automated erythrocyte mean corpuscular volume 91 [foz_us] 80-99 Automated erythrocyte mean corpuscular hemoglobin (mass per erythrocyte) 31 pg 25-34 Automated erythrocyte mean corpuscular hemoglobin concentration measurement ( mass/volume) 34 g/dL 32-36 Automated erythrocyte distribution width ratio 13.9 % 10.0-14.5 Automated blood platelet count (count/volume) 140 10*3/uL 130-400 Automated blood platelet mean volume measurement 9.2 [foz_us ] 7.4-10.4 Automated blood neutrophils/100 leukocytes 55 % 42-75 Automated blood lymphocytes/100 leukocytes 33 % 12-44 Blood monocytes/100 leukocytes 9 % 0-12 Automated blood eosinophils/100 leukocytes 4 % 0-10 Automated blood basophils/100 leukocytes 0 % 0-10 Blood neutrophils automated count (number/volume) 3.8 10*3 1.8-7.8 Blood lymphocytes automated count (number/volume) 2.3 10*3 1.0-4.0 Blood monocytes automated count (number/volume) 0.6 10*3 0.0-1.0 Automated eosinophil count 0.3 10*3/uL 0.0-0.3 Automated blood basophil count (count/volume) 0.0 10*3/uL 0.0-0.1 Comprehensive metabolic panel - 10/20/16 03:40 Serum or plasma sodium measurement (moles/volume) 139 mmol/ L 135-145 Serum or plasma potassium measurement (moles/volume) 3.5 mmol/L 3.6-5.0 Serum or plasma chloride measurement (moles/volume) 104 mmol /L 98-107 Carbon dioxide 22 mmol/L 21-32 Serum or plasma anion gap determination (moles/volume) 13 mmol/L 5-14 Serum or plasma urea nitrogen measurement (mass/volume) 19 mg/dL 7-18 Serum or plasma creatinine measurement (mass/volume) 0.78 mg /dL 0.60-1.30 Serum or plasma urea nitrogen/creatinine mass ratio 24 0-20 Serum or plasma creatinine measurement with calculation of estimated glomerular filtration rate > NRG Serum or plasma glucose measurement (mass/volume) 119 mg/dL 70-105 Serum or plasma calcium measurement (mass/volume) 9.1 mg/dL 8.5-10.1 Serum or plasma total bilirubin measurement (mass/volume) 0.8 mg/dL 0.1-1.0 Serum or plasma alkaline phosphatase measurement (enzymatic activity/volume) 95 U/L 40-136 Serum or plasma aspartate aminotransferase measurement (enzymatic activity/ volume) 16 U/L 5-34 Serum or plasma alanine aminotransferase measurement (enzymatic activity/volume ) 15 U/L 0-55 Serum or plasma protein measurement (mass/volume) 6.5 g/dL 6.4-8.2 Serum or plasma albumin measurement (mass/volume) 3.7 g/dL 3.2-4.5 Lipid 1996 panel - 10/20/16 03:40 Serum or plasma triglyceride measurement (mass/volume) 291 mg/dL <150 Serum or plasma cholesterol measurement (mass/volume) 167 mg /dL < 200 Serum or plasma cholesterol in HDL measurement (mass/volume) 20 mg/dL 40-60 Cholesterol in LDL [mass/volume] in serum or plasma by direct assay 106 mg/dL 1-129 Serum or plasma cholesterol in VLDL measurement (mass/volume) 58 mg/dL 5-40 Capillary blood glucose measurement by glucometer (mass/volume) - 10/20/16 11: 29 Capillary blood glucose measurement by glucometer (mass/volume) 185 mg/dL 70-110 Encounters ACCT No. Visit Date/Time Discharge Status Pt. Type Provider Facility Loc./Unit Complaint [id number] 10/19/2016 17:40:00 2016 19:00:00 DIS Inpatient MAICOL WHITEHEAD DO [facility] ICU TIA [id number] 12/27/2014 14:26:00 2014 15:55:00 DIS Emergency HAZEL GARCIAS APRN [facility] ER RIGHT BIG TOE INJURY [id number] 10/17/2012 07:51:00 2012 23:59:59 CLS Outpatient MAICOL WHITEHEAD DO [facility] RAD [id number] 09/30/2012 19:00:00 2012 12:30:00 DIS Inpatient KRAIG FERRELL MD [facility] SURGICAL [id number] 08/06/2015 14:08:00 ACT Outpatient MAICOL WHITEHEAD DO [facility] RAD PAIN IN LOWER STERNUM BY WIRE [id number] 10/05/2011 07:48:00 Document Registration [id number] 06/29/2011 10:45:00 Document Registration [id number] 05/29/2011 11:05:00 Document Registration [id number] 03/23/2011 12:01:00 Document Registration [id number] 03/18/2011 09:48:00 Document Registration [id number] 02/09/2011 07:53:00 Document Registration [id number] 07/25/2009 15:11:00 Document Registration [id number] 04/17/2009 08:15:00 Document Registration
--- OUTSIDE RECORDS SUMMARY | 2016-10-22 12:45 | XMS REPORT | Continuity of Care Document ---
Author Author [facility] Organization [facility] Address Unknown Phone Unavailable Care Team Providers Care Chocolate Temperer Name Role Phone MAICOL WHITEHEAD DO PP Insurance Providers Payer Name Policy Number Subscriber Name Relationship [facility] [id number] Oliver Smith 01 Self / Same As Patient Advance Directives Directive Response Recorded Date Advance Directives N 09/30/12 7:46pm Health Care Power of Attraction Attendant N 09/30/12 7:46pm Organ Donor N 09/30/12 7:46pm Problems No Known Problems or Medical conditions. Family History History Response Recorded Date/Time Hx Family Cancer Y FATHER-MELANOMA PATERNAL GRANDFATHER- LEUKEMIA 09/30/12 8:40pm Social History History Response Recorded Date/Time Alcohol Use Denies Use 09/30/12 8:40pm Recreational Drug Use N 09/30/12 8:40pm Recent Foreign Travel N 09/30/12 8:40pm Recent Infectious Disease Exposure N 8:40pm Hospitalization with Isolation Denies 07/13 2:03pm Allergies, Adverse Reactions, Alerts Allergen Type Severity Reaction Last Updated Penicillins Allergy Mild RASH 08/17/08 Medications Medication Dose Units Route Sig Qty Days Docusate Sodium (Colace) 100 Mg PO BID 60 Oxycodone Hcl/Acetaminophen (Percocet 5-325 Mg Tablet) 1 Each PO Q4-6H PRN 40 Metformin HCl (Metformin 500 Mg) 500 Mg PO BID Aspirin (Aspirin Ec 325 Mg) 325 Mg PO DAILY Multivitamins (Multiple Vitamin) 1 Tab PO DAILY Atenolol (Tenormin 100 Mg) 25 Mg PO DAILY Immunizations Name Given Type pneumococcal polysaccharide PPV23 10/02/12 A pneumococcal polysaccharide PPV23 10/02/12 A Response Recorded Date/Time Status not known Unknown Results Test Date Result Interp. Ref. Range Activated Partial Thromboplast Time February 09, 2011 1:43pm 36 SEC H 24-35 Alanine Aminotransferase (ALT/SGPT) September 30, 2012 3:04pm 43 U/L N 30-65 Albumin September 30, 2012 3:04pm 4.0 G/DL N 3.4-5.0 Alkaline Phosphatase September 30, 2012 3:04pm 99 U/L N 50-136 Aspartate Amino Transf (AST/SGOT) September 30, 2012 3:04pm 29 U/L N 15-37 BUN/Creatinine Ratio September 30, 2012 3:04pm 23 - Basophils # (Auto) February 09, 2011 5:56am 0.1 10^3/uL N 0.0-0.1 Basophils (%) (Auto) February 09, 2011 5:56am 1 % N 0-10 Blood Urea Nitrogen September 30, 2012 3:04pm 18 MG/DL N 7-18 Calcium Level September 30, 2012 3:04pm 8.5 MG /DL N 8.5-10.1 Carbon Dioxide Level September 30, 2012 3:04pm 21 MMOL/L N 21-32 Chloride Level September 30, 2012 3:04pm 100 MMOL/L L 101-110 Cholesterol Level October 05, 2011 8:04am 175 MG/DL N -200 Creatine Kinase MB February 09, 2011 5:56am 2.0 NG/ML N 0.0-3.6 Creatinine September 30, 2012 3:04pm 0.8 MG/ DL N 0.6-1.3 Direct Bilirubin September 30, 2012 3:04pm 0.1 MG/DL N 0.0-0.30 Eosinophils # (Auto) February 09, 2011 5:56am 0.2 10^3/uL N 0.0-0.3 Eosinophils (%) (Auto) February 09, 2011 5:56am 3 % N 0-10 Glucose Level September 30, 2012 3:04pm 114 MG /DL H 74-106 HDL Cholesterol October 05, 2011 8:04am 22 MG/DL L 35-60 Hematocrit September 30, 2012 3:04pm 43 % N 40-54 Hemoglobin September 30, 2012 3:04pm 15.2 G/ DL N 13.3-17.7 Hemoglobin A1c February 05, 2009 9:20am 6.4 H % - Indirect Bilirubin September 30, 2012 3:04pm 0.5 MG/DL - LDL Cholesterol October 05, 2011 8:04am 35 MG/DL N 0-129 Lymphocytes # (Auto) February 09, 2011 5:56am 2.2 X 10^3 N 1.0-4.0 Lymphocytes (%) (Auto) February 09, 2011 5:56am 30 % N 12-44 Magnesium Level March 18, 2011 10:00am 2.0 MG/DL N 1.8-2.4 Mean Corpuscular Hemoglobin September 30, 2012 3:04pm 32 PG N 25-34 Mean Corpuscular Hemoglobin Concent September 30, 2012 3:04pm 36 G/DL N 32-36 Mean Corpuscular Volume September 30, 2012 3:04pm 89 FL N 80-99 Mean Platelet Volume September 30, 2012 3:04pm 9.3 FL N 7.4-10.4 Monocytes # (Auto) February 09, 2011 5:56am 0.6 X 10^3 N 0.0-1.0 Monocytes (%) (Auto) February 09, 2011 5:56am 8 % N 0-12 Myoglobin February 09, 2011 5:56am 38 UG/ L N 10-92 Neutrophils # (Auto) February 09, 2011 5:56am 4.3 X 10^3 N 1.8-7.8 Neutrophils (%) (Auto) February 09, 2011 5:56am 59 % N 42-75 Platelet Count September 30, 2012 3:04pm 157 10^3/uL N 130-400 Potassium Level September 30, 2012 3:04pm 3.7 MMOL/L N 3.6-5.0 Prothromb Time International Ratio February 09, 2011 5:56am 1.0 N 0.8-1.4 Prothrombin Time February 09, 2011 5:56am 13.1 SEC N 12.2-14.7 Red Blood Count September 30, 2012 3:04pm 4.80 10^6/uL N 4.35-5.85 Red Cell Distribution Width September 30, 2012 3:04pm 12.8 % N 10.0-14.5 Sodium Level September 30, 2012 3:04pm 135 MMOL/L N 135-145 Thyroid Stimulating Hormone (TSH) March 18, 2011 10:00am 1.43 UIU/ML N 0.34- 5.60 Total Bilirubin September 30, 2012 3:04pm 0.6 MG/DL N 0.0-1.0 Total Protein September 30, 2012 3:04pm 7.2 G/ DL N 6.4-8.2 Triglycerides Level October 05, 2011 8:04am 592 MG/DL H 30.0-150.0 Troponin I February 09, 2011 1:43pm 0.22 MG/ML H 0.00-0.10 Urine Bacteria August 01, 2007 6:50am Negative - Urine Bilirubin August 01, 2007 6:50am Negative - Urine Casts August 01, 2007 6:50am None - Urine Clarity August 01, 2007 6:50am Clear - Urine Color August 01, 2007 6:50am Yellow - Urine Crystals August 01, 2007 6:50am None - Urine Culture Indicated August 01, 2007 6:50am No - Urine Glucose (UA) August 01, 2007 6:50am Negative - Urine Ketones August 01, 2007 6:50am Negative - Urine Leukocyte Esterase August 01, 2007 6:50am Negative - Urine Mucus August 01, 2007 6:50am Negative - Urine Nitrate August 01, 2007 6:50am Negative - Urine Protein August 01, 2007 6:50am Negative - Urine RBC August 01, 2007 6:50am Tntc / HPF H - Urine Specific [place] August 01, 2007 6:50am 1.015 L - Urine Squamous Epithelial Cells August 01, 2007 6:50am None - Urine Urobilinogen August 01, 2007 6:50am Normal MG/DL - Urine WBC August 01, 2007 6:50am None / HPF - Urine pH August 01, 2007 6:50am 6.5 - VLDL Cholesterol October 05, 2011 8:04am 118 MG/DL H 5-40 White Blood Count September 30, 2012 3:04pm 7.0 10^3/uL N 4.3-11.0 Serum Alcohol September 30, 2012 3:04pm < 5 MG /DL -5 Lab Scanned Report February 09, 2011 7:53am Referred Lab Report [id number] - Estimat Glomerular Filtration Rate September 30, 2012 3:04pm > 60 - Creatine Kinase February 09, 2011 1:43pm 57 U/L N 1-205 Cardiac Panel Pathologist Review February 09, 2011 5:56am SEE CARDIAC PATH REV - Urine RBC (Auto) August 01, 2007 6:50am 4 + H - Procedures Procedure Code Date LEFT HEART CARDIAC CATH 37.22 02/09/11 LT HEART ANGIOCARDIOGRAM 88.53 02/09/11 CORONAR ARTERIOGR-2 CATH 88.56 02/09/11 CONTRAST AORTOGRAM 88.42 02/09/11 Encounters Encounter Location Date/Time Discharged Inpatient [facility] 7:00pm Departed Emergency Room [facility] 12 :00am
--- OUTSIDE RECORDS SUMMARY | 2016-10-22 12:47 | XMS REPORT | Continuity of Care Document ---
Author Author [facility] Organization [facility] Address Unknown Phone Unavailable Allergies Active Description Code Type Severity Reaction Onset Reported/Identified Relationship to Patient Clinical Status Yes Penicillins [id number] Drug Allergy Mild RASH 08/17/2008 Medications Problems [...] 10/03/2012 GHASSAN POND, KRAIG Ot 401.9 10/03/2012 GHASSAN POND, KRAIG Ot 414.00 10/03/2012 GHASSAN POND, [...] 12/27/2014 Ot V58.69 12/27/2014 CASHLENDER , MAICOL Mares Ot 959.2 12/27/2014 GELLENDER DO, MAICOL Mares Ot E000.8 12/27/2014 GELLENDER DO, MAICOL Mares Ot E849.3 12/27/2014 GELLENDER , MAICOL Mares Ot E888.9 12/27/2014 HAZEL GARCIAS APRN Ot 826.1 FX PHALANX, FOOT-OPEN 12/27/2014 HAZEL GARCIAS MEDICAID PLAN COMPLIANCE DIRECTOR Ot 959.7 LOWER LEG INJURY NOS 12/27/2014 HAZEL GARCIAS MEDICAID PLAN COMPLIANCE DIRECTOR Ot E000.0 CIVILIAN ACTIVITY DONE FOR INCOME OR PAY 12/27/2014 HAZEL GARCIAS APRN Ot E917.9 STRUCK BY OBJ/PERSON NEC 12/27/2014 HAZEL GARCIAS MEDICAID PLAN COMPLIANCE DIRECTOR Ot V06.1 [id number], COMBINED [ 08/21/2015 VENTURA BULLOCKMAICOL Ot R07.2 [...] Status Pt. Type Provider Facility Loc./Unit Complaint [id number] 10/19/2016 17:40:00 2016 19:00:00 DIS Inpatient MAICOL WHITEHEAD DO [facility] ICU TIA [id number] 12/27/2014 14:26:00 2014 15:55:00 DIS Emergency HAZEL GARCIAS APRN [facility] ER RIGHT BIG TOE INJURY [id number] 10/17/2012 07:51:00 2012 23:59:59 CLS Outpatient MAICOL WHITEHEAD DO [facility] RAD [id number] 09/30/2012 19:00:00 2012 12:30:00 DIS Inpatient KRAIG FERRELL MD [facility] SURGICAL [id number] 08/06/2015 14:08:00 ACT Outpatient MAICOL WHITEHEAD DO [facility] RAD PAIN IN LOWER STERNUM BY WIRE [id number] 10/05/2011 07:48:00 Document Registration [id number] 06/29/2011 10:45:00 Document Registration [id number] 05/29/2011 11:05:00 Document Registration [id number] 03/23/2011 12:01:00 Document Registration [id number] 03/18/2011 09:48:00 Document Registration [id number] 02/09/2011 07:53:00 Document Registration [id number] 07/25/2009 15:11:00 Document Registration [id number] 04/17/2009 08:15:00 Document Registration
== END 2016-10-20 18:48 | disposition home or self-care (01) ==
LOC: EDUNIT# 16:06 → ER 16:08 → UNDOADMOB 17:40 → ICU 17:40 → UNDOADMOB 18:20 → UNDODISOB 10-20 18:48
PROVIDERS: ADMIT Family Medicine; ATTEND Family Medicine
DX: G45.9 Transient cerebral ischemic attack, unspecified (principal); E11.9 Type 2 diabetes mellitus without complications; I25.10 Atherosclerotic heart disease of native coronary artery without angina pectoris; I10 Essential (primary) hypertension; E78.5 Hyperlipidemia, unspecified; G47.30 Sleep apnea, unspecified; F17.210 Nicotine dependence, cigarettes, uncomplicated; I25.2 Old myocardial infarction; Z95.1 Presence of aortocoronary bypass graft; Z95.5 Presence of coronary angioplasty implant and graft; Z79.82 Long term (current) use of aspirin; Z79.84 Long term (current) use of oral hypoglycemic drugs; Z79.899 Other long term (current) drug therapy
CPT/HCPCS: 36415; 70450; 70551; 71010; 80053; 80061; 81000; 82962; 84484; 85025; 85379; 85610; 85730; 93005; 93880; G0378

== ENCOUNTER → 2017-11-16 | Outpatient (CLI) | payer OTHER ==
[~2017-11-16] MED LIST changes: +ACHD5005 PO; +ASPI-999 PO; +ATEN25TA PO; +CLOP75TA28 PO; +DAPA10TA PO; +FURO40TA4; +FURO40TA4 PO; +METF10002 PO; +METF500T5 PO; +OMEG-160 PO; +POTA10TA10; +POTA10TA10 PO; +ROSU20TA31 PO
[2017-11-16 09:56] LABS: BASOPHILS % (AUTO) 1 % (0-10); EOSINOPHILS # (AUTO) 0.1 10^3/uL (0.0-0.3); EOSINOPHILS % (AUTO) 2 % (0-10); HEMATOCRIT 45 % (40-54); HEMOGLOBIN 15.7 G/DL (13.3-17.7); LYMPHOCYTES # (AUTO) 1.1 X 10^3 (1.0-4.0); LYMPHOCYTES % (AUTO) 22 % (12-44); MEAN CORPUSCULAR HEMOGLOBIN 32 PG (25-34); MEAN CORPUSCULAR HGB CONC 35 G/DL (32-36); MEAN CORPUSCULAR VOLUME 91 FL (80-99); MEAN PLATELET VOLUME 9.2 FL (7.4-10.4); MONOCYTES # (AUTO) 0.4 X 10^3 (0.0-1.0); MONOCYTES % (AUTO) 7 % (0-12); NEUTROPHILS # (AUTO) 3.5 X 10^3 (1.8-7.8); NEUTROPHILS % (AUTO) 69 % (42-75); PLATELET COUNT 137 10^3/uL (130-400); RED BLOOD COUNT 4.91 10^6/uL (4.35-5.85); RED CELL DISTRIBUTION WIDTH 12.9 % (10.0-14.5); WHITE BLOOD COUNT 5.1 10^3/uL (4.3-11.0)
--- NOTE | 2017-11-16 10:43 | Diagnostic Imaging Report ---
INDICATION: Cough COMPARISON: 10/19/2016 FINDINGS: Two views of the chest were obtained. Heart size is normal. There are postoperative changes in the mediastinum. There is no central venous congestion or evidence of failure. There is no pneumothorax or pleural fluid. There is, however, some infiltrate in the left lower lobe or lingula. The right lung is clear. There are minimal degenerative changes in the spine. IMPRESSION: There is some left-sided infiltrate within the left lower lobe and lingula. Short-term followup study is recommended to document resolution. Dictated by: Dictated on workstation # [id number]
== END ==
LOC: RAD 09:41
PROVIDERS: ATTEND Family Medicine
DX: R91.8 Other nonspecific abnormal finding of lung field (principal)
CPT/HCPCS: 36415; 71046; 85025

== ENCOUNTER → 2017-11-23 | Outpatient (CLI) | payer OTHER ==
--- NOTE | 2017-11-23 13:30 | Diagnostic Imaging Report ---
INDICATION: Pneumonia. COMPARISON: 11/16/2017. FINDINGS: The left perihilar infiltrate in the lateral view is predominantly shown to be carroll-fissural in the posterior aspect of the lingular segment of the left upper lobe. The right lung clear. Air trapping and COPD are chronic. The sternal wires are midline. No pneumothorax or effusion. IMPRESSION: Persistent left perihilar pulmonary opacity is largely carroll-fissural in the lingula. A followup exam in 1 week is suggested. If there has been no substantial improvements, CT would then be appropriate given its persistence. No adverse development. No new finding. Dictated by: Dictated on workstation # [id number]
== END ==
LOC: RAD 11:22
PROVIDERS: ATTEND Family Medicine
DX: J18.9 Pneumonia, unspecified organism (principal)
CPT/HCPCS: 71046

== ENCOUNTER → 2017-12-01 | Outpatient (CLI) | payer OTHER ==
--- NOTE | 2017-12-01 14:17 | Diagnostic Imaging Report ---
INDICATION: Lower respiratory infection. EXAMINATION: PA and lateral chest. FINDINGS: There are postop changes from a median sternotomy. The heart size and pulmonary vascularity are normal. The lungs are clear. There are no effusions or pneumothoraces. IMPRESSION: Negative chest. Dictated by: Dictated on workstation # [id number]
== END ==
LOC: RAD 08:03
PROVIDERS: ATTEND Family Medicine
DX: J22 Unspecified acute lower respiratory infection (principal); J18.9 Pneumonia, unspecified organism
CPT/HCPCS: 71046

== ENCOUNTER 2022-07-20 22:54 | Emergency (ER) | payer MEDICARE, OTHER ==
[~2022-07-20] VITALS: Ht 185 cm; Wt 112.5 kg
[~2022-07-20 22:54] MED LIST changes: -HYDR-3062 PO; +METF-397 PO; +METF-399 PO; -METF10002 PO; -METF500T5 PO; -OXYC-197 PO; +OXYC1TAB87 PO; -ROSU20TA PO; +ROSU20TA2 PO; -ROSU20TA31 PO; +ROSU20TA32 PO; -SULF1TAB35 PO; +SULF1TAB38 PO
[2022-07-20] MEDS: NITROGLYCERIN 0.4 MG SL TABS BTL 25'S SL PRN ×3 (23:07→23:58)
[2022-07-20] MEDS ORDERED: ASPIRIN 81 MG CHEW (CHILDREN'S ASA) PO ONE (23:15)
[2022-07-20 23:16] LABS: BASOPHILS % (AUTO) 0 % (0-10); EOSINOPHILS # (AUTO) 0.1 10^3/uL (0.0-0.3); EOSINOPHILS % (AUTO) 1 % (0-10); HEMATOCRIT 51 % (40-54); HEMOGLOBIN 17.8 g/dL (13.3-17.7); LYMPHOCYTES # (AUTO) 1.1 10^3/uL (1.0-4.0); LYMPHOCYTES % (AUTO) 12 % (12-44); MEAN CORPUSCULAR HEMOGLOBIN 32 pg (25-34); MEAN CORPUSCULAR HGB CONC 35 g/dL (32-36); MEAN CORPUSCULAR VOLUME 90 fL (80-99); MEAN PLATELET VOLUME 9.3 fL (9.0-12.2); MONOCYTES # (AUTO) 0.4 10^3/uL (0.0-1.0); MONOCYTES % (AUTO) 5 % (0-12); NEUTROPHILS # (AUTO) 7.6 10^3/uL (1.8-7.8); NEUTROPHILS % (AUTO) 82 % (42-75); PLATELET COUNT 141 10^3/uL (130-400); WHITE BLOOD COUNT 9.3 10^3/uL (4.3-11.0)
[2022-07-20 23:31] LABS: ALBUMIN 4.2 GM/DL (3.2-4.5)
[2022-07-20 23:32] LABS: POTASSIUM 4.2 MMOL/L (3.6-5.0)
[2022-07-20 23:33] LABS: CALCIUM 9.1 MG/DL (8.5-10.1)
[2022-07-20 23:34] LABS: TOTAL PROTEIN 7.5 GM/DL (6.4-8.2)
[2022-07-20 23:36] LABS: BILIRUBIN,TOTAL 0.5 MG/DL (0.1-1.0)
[2022-07-20 23:37] LABS: CREATININE SERUM 1.2 MG/DL (0.60-1.30)
[2022-07-20 23:44] LABS: INR 0.9 (0.8-1.4); PROTHROMBIN TIME PATIENT 12.4 SEC (12.2-14.7)
[2022-07-20] MEDS ORDERED: morphine INJ 10 MG/ML 1ML (SYR OR VIAL) IVP STA (23:56)
--- NOTE | 2022-07-21 00:05 | ED Chest Pain ---
General Chief Complaint: Chest Pain Stated Complaint: CHEST PAIN| ARM PAIN Nursing Triage Note: pt presents with chest pain that radiates bw shoulder blades and radiates down both arms and nausea x 3 hours. pt states this is how his previous 4 MIs presented. Source: patient, old records Exam Limitations: no limitations History of Present Illness Date Seen by Provider: Jul 20, 2022 Time Seen by Provider: 23:05 Initial Comments This 67-year-old gentleman with extensive coronary artery disease history presents to the emergency room with complaints of pain in his chest, between his shoulders, and down his arms for about 3 hours prior to arrival. He states this feels very similar to when he has had prior MIs. He has had a CABG many years ago by Dr. Goyal at [place] and has had several stents placed since then. His local senior bi architect is Dr. Sen. He has also seen Dr. Cardoso at [place]. His primary care provider is Dr. Whitehead. He received nitroglycerin x2 upon arrival. He states that brought his pain from 5/10 down to a 2/10. Pain has now rebounded to 4/10. Patient took aspirin 81 mg this morning. He was given 324 mg aspirin in the ER. He takes Eliquis but has not yet taken his evening dose. Allergies and Home Medications Allergies Coded Allergies: Penicillins (Unverified Allergy, Mild, RASH, 08/17/08) Patient Home Medication List Home Medication List Reviewed: Yes Aspirin (Aspirin) 81 Mg Tab.chew, 81 MG PO DAILY Prescribed by: SUSAN TIJERINA on 10/20/161847 Atenolol (Atenolol) 25 Mg Tablet, 25 MG PO DAILY, (Reported) Entered as Reported by: SUSAN TIJERINA on 10/19/161834 Clopidogrel Bisulfate (Clopidogrel) 75 Mg Tablet, 75 MG PO DAILY Prescribed by: SUSAN TIJERINA on 10/20/161847 Dapagliflozin Propanediol (Farxiga) 10 Mg Tablet, 10 MG PO DAILY, (Reported) Entered as Reported by: SUSAN TIJERINA on 10/19/161832 Furosemide (Furosemide) 40 Mg Tablet, 40 MG PO DAILY, (Reported) Entered as Reported by: SUSAN TIJERINA on 10/19/161834 Hydrocodone Bit/Acetaminophen (Lortab 5 Mg Tablet) 1 Each Tablet, 1 TAB PO BID PRN for PAIN, (Reported) Entered as Reported by: SUSAN TIJERINA on 10/19/16 1835 Metformin HCl (Metformin HCl) 500 Mg Tablet, 1,000 MG PO BID, (Reported) Entered as Reported by: SABRA MCKEON on 10/20/16 1027 Aldrich-3/Dha/Epa/Fish Oil (Fish Oil 1,000 mg Softgel) 1 Each Capsule, 3,000 MG PO BID, (Reported) Entered as Reported by: SABRA MCKEON on 10/20/16 1027 Potassium Chloride (Potassium Chloride) 10 Meq Tablet.er, 10 MEQ PO DAILY, (Reported) Entered as Reported by: SUSAN TIJERINA on 10/19/16 1835 Rosuvastatin Calcium (Rosuvastatin Calcium) 20 Mg Tablet, 20 MG PO DAILY, (Reported) Entered as Reported by: SUSAN TIJERINA on 10/20/16 1629 Review of Systems Review of Systems Constitutional: no symptoms reported EENTM: No Symptoms Reported Respiratory: No Symptoms Reported Cardiovascular: See HPI Gastrointestinal: No Symptoms Reported Genitourinary: No Symptoms Reported Musculoskeletal: no symptoms reported Skin: no symptoms reported Psychiatric/Neurological: No Symptoms Reported Endocrine: No Symptoms Reported Hematologic/Lymphatic: No Symptoms Reported Past Iokoeys-Nirhaw-Imjulc Hx Patient Social History Tobacco Use?: Yes Tobacco type used: Cigars Smoking Status: Current Someday Smoker Substance use?: No Alcohol Use?: Yes Alcohol Frequency: Rarely Immunizations Up To Date Tetanus Booster (TDap): Unknown PED Vaccines UTD: No Influenza Vaccine Up-to-Date: No; Not Current Seasonal Allergies Seasonal Allergies: No Past Medical History Surgeries: Yes (BI PASS, ANKLE PINNED) CABG, Coronary Stent, Orthopedic, Tonsillectomy Respiratory: Yes Sleep Apnea Currently Using BIPAP: Yes Cardiac: Yes Coronary Artery Disease, Heart Attack, Hypertension Neurological: Yes Reproductive Disorders: No Genitourinary: Yes Kidney Stones Gastrointestinal: No Musculoskeletal: Yes Fractures Endocrine: Yes Diabetes, Non-Insulin dep HEENT: No Cancer: No Psychosocial: No Integumentary: No Blood Disorders: No Adverse Reaction/Blood Tranf: No Family Medical History No Pertinent Family Hx Physical Exam Vital Signs Vital Signs - First Documented 07/20/22 07/21/22 23:00 00:02 Temp 36.9 Pulse 110 Resp 20 B/P (MAP) 142/84 (103) Pulse Ox 97 O2 Delivery Room Air O2 Flow Rate 2.00 Capillary Refill : Height, Weight, BMI Height: 6'1.00" Weight: 256lbs. 0.2oz. 116.321944gw; 32.00 BMI Method:Stated General Appearance: WD/WN, Mild Distress, Other (Overweight) HEENT: PERRL/EOMI, Normal ENT Inspection Neck: Normal Inspection; No JVD Respiratory: Lungs Clear, Normal Breath Sounds, No Accessory Muscle Use Cardiovascular: Regular Rate, Rhythm, No Murmur, Other (Mild lower extremity edema) Gastrointestinal: Non Tender, Soft Extremity: Normal Inspection, Non Tender, Other (Mild lower extremity edema) Neurologic/Psychiatric: Alert, Oriented x3, No Motor/Sensory Deficits, Normal Mood/Affect Skin: Normal Color, Warm/Dry Procedures/Interventions Suture Size: 4-0 Progress/Results/Core Measures Results/Orders Lab Results Laboratory Tests Test 07/20/22 23:09 Range/Units White Blood Count 9.3 4.3-11.0 10^3/uL Red Blood Count 5.61 H 4.30-5.52 10^6/uL Hemoglobin 17.8 H 13.3-17.7 g/dL Hematocrit 51 40-54 % Mean Corpuscular Volume 90 80-99 fL Mean Corpuscular Hemoglobin 32 25-34 pg Mean Corpuscular Hemoglobin Concent 35 32-36 g/dL Red Cell Distribution Width 13.1 10.0-14.5 % Platelet Count 141 130-400 10^3/uL Mean Platelet Volume 9.3 9.0-12.2 fL Immature Granulocyte % (Auto) 0 % Neutrophils (%) (Auto) 82 H 42-75 % Lymphocytes (%) (Auto) 12 12-44 % Monocytes (%) (Auto) 5 0-12 % Eosinophils (%) (Auto) 1 0-10 % Basophils (%) (Auto) 0 0-10 % Neutrophils # (Auto) 7.6 1.8-7.8 10^3/uL Lymphocytes # (Auto) 1.1 1.0-4.0 10^3/uL Monocytes # (Auto) 0.4 0.0-1.0 10^3/uL Eosinophils # (Auto) 0.1 0.0-0.3 10^3/uL Basophils # (Auto) 0.0 0.0-0.1 10^3/uL Immature Granulocyte # (Auto) 0.0 0.0-0.1 10^3/uL Prothrombin Time 12.4 12.2-14.7 SEC INR Comment 0.9 0.8-1.4 Activated Partial Thromboplast Time 32 24-35 SEC Sodium Level 138 135-145 MMOL/L Potassium Level 4.2 3.6-5.0 MMOL/L Chloride Level 103 98-107 MMOL/L Carbon Dioxide Level 17 L 21-32 MMOL/L Anion Gap 18 H 5-14 MMOL/L Blood Urea Nitrogen 19 H 7-18 MG/DL Creatinine 1.20 0.60-1.30 MG/DL Estimat Glomerular Filtration Rate 67 BUN/Creatinine Ratio 16 Glucose Level 273 H 70-105 MG/DL Calcium Level 9.1 8.5-10.1 MG/DL Corrected Calcium 8.9 8.5-10.1 MG/DL Magnesium Level 2.0 1.6-2.4 MG/DL Total Bilirubin 0.5 0.1-1.0 MG/DL Aspartate Amino Transf (AST/SGOT) 15 5-34 U/L Alanine Aminotransferase (ALT/SGPT) 19 0-55 U/L Alkaline Phosphatase 103 40-136 U/L Myoglobin 51.7 10.0-92.0 NG/ML Troponin I 0.248 H <0.028 NG/ML Total Protein 7.5 6.4-8.2 GM/DL Albumin 4.2 3.2-4.5 GM/DL My Orders Orders - RAISA PINEDO MD Ekg Tracing (07/20/22 23:02) Cbc With Automated Diff (07/20/22:) Magnesium (07/20/22 23:02) Chest 1 View, Ap/Pa Only (07/20/22 23:02) Ekg Tracing (07/20/22 23:02) Comprehensive Metabolic Panel (07/20/22 23:) Myoglobin Serum (07/20/22:) Protime With Inr (07/20/22 23:) Partial Thromboplastin Time (07/20/22 23:02) O2 (07/20/22 23:02) Monitor-Rhythm Ecg Trace Only (07/20/22 23:02) Ed Iv/Invasive Line Start (07/20/22 23:02) Troponin I Carolyn (07/20/22 23:02) Nitroglycerin 0.4 Mg Btl 25's (Nitrostat (07/20/22 23:15) Aspirin Chewable Tablet (Baby Aspirin Ch (07/20/22 23:15) Morphine Injection (Morphine Injection (07/20/22 23:56) Morphine Injection (Morphine Injection (07/21/22 01:07) Clopidogrel Tablet (Plavix Tablet) (07/21/22 01:15) Metoprolol Succinate (Xl) Tab (Toprol Xl (07/21/22 01:09) Heparin Drip 14997 Unit/500ml (Heparin (07/21/22 01:30) Heparin (Bolus Per Protocol) (Heparin (B (07/21/22 01:30) Heparin (Bolus Per Protocol) (Heparin (B (07/21/22 01:25) Heparin Drip 76131 Unit/500ml (Heparin (07/21/22 01:25) Morphine Injection (Morphine Injection (07/21/22 03:11) Medications Given in ED Vital Signs/I&O 07/20/22 07/21/22 07/21/22 23:00 00:02 02:53 Temp 36.9 36.3 Pulse 110 97 Resp 20 16 B/P (MAP) 142/84 (103) 140/93 Pulse Ox 97 97 100 O2 Delivery Room Air Nasal Cannula Nasal Cannula O2 Flow Rate 2.00 2.00 Blood Pressure Mean: 103 Progress Progress Note #1: Time: 00:04 Progress Note Patient was interviewed and examined. He was experiencing rebound pain during my interview. Patient was initially reported as 5/10. This improved to 2/10 after nitro. He has now rebounded to 4/10. He states this pain feels similar to prior ME. He did have an elevated troponin on his labs. Labs were reviewed in their entirety including CBC, CMP, CRP, troponin, myoglobin, magnesium, and coagulation panel. No other significant abnormalities were appreciated. Progress Note #2: Time: 03:30 Progress Note Patient continued to have waves of chest pain intermittently which were treated with morphine. [facility] was at admission capacity and boarding multiple patients in the ED. To expedite care for this gentleman with suspected NSTEMI, transfer was sought to [place] where he had received cardiac services in the past. I discussed with Dr. Rdz, resident for the hospitalist service at [place]. Transfer was initially rejected as he was not considered to meet admission criteria for the ICU. [facility] was on cardiac and MedSurg diversion at that time. I discussed management with Dr. Sen, local senior bi architect acute care nurse practitioner, at 0020. He recommended Plavix 300 mg, Eliquis 5 mg, Toprol-XL 50 mg, and continued n.p.o. status. I then received a call back from [place]. After further review with Dr. Reyes, attending hospitalist, transfer was excepted. They recommended heparinization rather than Eliquis. This change was made to the plan. Patient eventually transferred to [facility] via EMS in stable condition. EKG #1: EKG Time: 23:05 Rate: 108 Rhythm: S.Tach Comment Sinus tachycardia with first-degree A-V block. No ST elevation noted but ST depression may be developing. Multiple PVCs noted, mostly bigeminy. Right bundle kaitlin block probable. No other abnormal intervals or axis deviation. EKG #2: EKG Time: 00:00 Rate: 109 Rhythm: S.Tach Intervals Sinus tachycardia Comment Sinus tachycardia with no ST elevation. Right bundle branch block probable. Concern for developing ST depression. No other abnormal intervals or axis deviation. Bigeminy resolved. Diagnostic Imaging Diagonstic Imaging: Xray Plain Films/CT/US/NM/MRI: chest Comments Chest x-ray was viewed by me. Report is not yet available. By my interpretation there appears to be chronic interstitial changes with no acute adverse change from prior. Departure Impression Primary Impression: NSTEMI (non-ST elevated myocardial infarction) Additional Impressions: Chest pain Qualified Codes: R07.9 - Chest pain, unspecified CAD (coronary artery disease) Qualified Codes: I25.10 - Atherosclerotic heart disease of [place] coronary artery without angina pectoris Disposition: [facility]-TRM HOSP Condition: Stable Transfer Transfer Reason: Diversion Time Spoke to Accepting Phy: 23:58 Transfer Progress Notes Case was discussed with Dr. Rdz, resident for Dr. Reyes, attending hospitalist at [facility] [place]. After review with Dr. Reyes, transfer was accepted. Transfer Time: 03:23 Transfer Facility: [facility] Method of Transfer: EMS Departure-Patient Inst. Referrals: MAICOL WHITEHEAD DO (PCP/Family) Primary Care Physician Copy Copies To 1: ABDIEL SEN MD FACP [facility] Copies To 2: MAICOL WHITEHEAD JOSHUA T MD Jul 21, 2022 00:05
[2022-07-21] MEDS ORDERED: morphine INJ 10 MG/ML 1ML (SYR OR VIAL) IVP STA (01:07)
[2022-07-21] MEDS ORDERED: meTOproloL SUCCINATE 50 MG (TOPROL XL) TAB PO STA (01:09)
[2022-07-21] MEDS ORDERED: CLOPIDOGREL 300 MG (PLAVIX) TABLET PO ONE (01:15)
[2022-07-21] MEDS ORDERED: APIXABAN 5 MG (ELIQUIS) TABLET PO ONE (01:15)
[2022-07-21] MEDS ORDERED: HEParin 1000 UNIT/ML (10ML VIAL) FOR BOLUS ONE (01:25)
[2022-07-21] MEDS ORDERED: HEParin DRIP 25000 UNIT/500ML 500 ML IV ONE ×2 (01:25→01:30)
[2022-07-21] MEDS ORDERED: HEParin 1000 UNIT/ML (10ML VIAL) FOR BOLUS IV ONE (01:30)
[2022-07-21 02:53] VITALS: BP 140/93
[2022-07-21] MEDS ORDERED: morphine INJ 10 MG/ML 1ML (SYR OR VIAL) ONE (03:11)
--- NOTE | 2022-07-21 06:46 | Diagnostic Imaging Report ---
INDICATION: Chest pain Portable chest 11:25 PM Heart size and pulmonary vascularity are normal. Lungs are clear. There are no effusions or pneumothoraces. IMPRESSION: Postoperative changes from a median sternotomy. No acute abnormality seen. Dictated by: Dictated on workstation # [id number]
== END 2022-07-21 03:23 | disposition short-term general hospital (02) ==
LOC: EDUNIT# 22:54 → ER 22:56
DX: I21.4 Non-ST elevation (NSTEMI) myocardial infarction (principal); I25.10 Atherosclerotic heart disease of native coronary artery without angina pectoris; G47.30 Sleep apnea, unspecified; I25.2 Old myocardial infarction; F17.290 Nicotine dependence, other tobacco product, uncomplicated; Z95.1 Presence of aortocoronary bypass graft; Z95.5 Presence of coronary angioplasty implant and graft; Z79.01 Long term (current) use of anticoagulants; Z99.89 Dependence on other enabling machines and devices
CPT/HCPCS: 36415; 71045; 80053; 83735; 83874; 84484; 85025; 85610; 85730; 93005; 93041

== ENCOUNTER → 2022-11-30 | Outpatient (RCR) | payer MEDICARE ==
[~2022-11-30] MED LIST changes: -ROSU20TA32 PO; +ROSU20TA73 PO
== END | disposition still patient (30) ==
LOC: CR 07:57
PROVIDERS: ATTEND Internal Medicine Cardiovascular Disease
DX: Z29.8 Encounter for other specified prophylactic measures (principal); Z95.2 Presence of prosthetic heart valve
CPT/HCPCS: 93798

== ENCOUNTER 2022-12-30 09:21 | Outpatient (RCR) | payer MEDICARE | END 2022-12-31 | disposition home or self-care (01) | LOC: CR 09:21 | PROVIDERS: ATTEND Internal Medicine Cardiovascular Disease | DX: Z29.8 Encounter for other specified prophylactic measures (principal); Z95.5 Presence of coronary angioplasty implant and graft | CPT/HCPCS: 93798 ==

== ENCOUNTER 2023-02-24 11:14 | Outpatient (RCR) | payer MEDICARE | END 2023-03-02 | disposition home or self-care (01) | LOC: CR 11:14 | PROVIDERS: ATTEND Internal Medicine Cardiovascular Disease | DX: Z29.89 Encounter for other specified prophylactic measures (principal); Z95.5 Presence of coronary angioplasty implant and graft | CPT/HCPCS: 93798 ==

== ENCOUNTER → 2023-04-08 | Outpatient (CLI) | payer MEDICARE ==
--- NOTE | 2023-04-08 13:49 | Diagnostic Imaging Report ---
INDICATION: Fall from ladder left 3rd finger and left leg pain COMPARISON: None. FINDINGS: 3 views of the left hand were obtained and show no fractures, dislocations, or other acute bony abnormalities. Joint spaces are well maintained throughout. The soft tissues appear unremarkable. No unexpected radiopaque foreign bodies are identified. IMPRESSION: Unremarkable radiographic exam of the left hand. Dictated by: Dictated on workstation # [id number]
--- NOTE | 2023-04-08 17:22 | Diagnostic Imaging Report ---
CLINICAL HISTORY: Fall. Left leg pain. COMPARISON: None. TECHNIQUE: 4 views of the left tibia and fibula. FINDINGS: There is no acute fracture or dislocation of the left tibia and fibula. Alignment is anatomic. The imaged joint spaces are preserved. No focal osseous lesions. IMPRESSION: 1. No acute fracture or dislocation in the left tibia and fibula. Dictated by: Dictated on workstation # [id number]
== END ==
LOC: RAD 11:41
PROVIDERS: ATTEND Family Medicine
DX: M79.605 Pain in left leg (principal); W19.XXXA Unspecified fall, initial encounter
CPT/HCPCS: 36415; 73130; 73590; 86141